=== PATIENT | female | born 1965 | race Asian ===

== ENCOUNTER 2021-08-01 02:07 | Inpatient (IN) | payer MEDICAID ==
[~2021-08-01] VITALS: Ht 154.9 cm; Wt 44.5 kg
--- NOTE | 2021-08-01 02:25 | NUR ---
TRACTOR TRAILER MECHANIC ADMITTING NOTES PATIENT ARRIVED ON UNIT VIA [place] WITH NURSE FROM [place]. RECEIVED PATIENT LAYING AWAKE IN BED. A/O X4. PATIENT WITH REGULAR AND UNLABORED BREATHING ON ROOM AIR, TOLERATED WELL. NO SIGNS AND SYMPTOMS OF DISTRESS NOTED AT THIS TIME. NO COMPLAINS OF PAIN OR DISCOMFORT AT THIS TIME. IV ACCESSES R HAND G #20 SL AND L HAND G #22 SL. IV ACCESSES PATENT AND INTACT. SAFETY PRECAUTIONS ENFORCED WITH BED LOCKED AND AT LOWEST POSITION. CALL LIGHT WITHIN REACH AT ALL TIMES. WILL CONTINUE TO MONITOR PATIENT.
[2021-08-01] MEDS ORDERED: ONDANSETRON HCL/PF 4 MG/2 ML VIAL IVP PRN (03:00)
[2021-08-01] MEDS ORDERED: MAG HYDROX/AL HYDROX/SIMETH 30 ML UDC PO PRN (03:00)
[2021-08-01] MEDS ORDERED: MAGNESIUM HYDROXIDE 30 ML UDC PO PRN (03:00)
[2021-08-01] MEDS ORDERED: TEMAZEPAM 15 MG CAPSULE PO PRN (03:00)
[2021-08-01] MEDS ORDERED: Z GUARD REMEDY 4 OZ OINT TP PRN (03:00)
[2021-08-01] MEDS ORDERED: APIX5TAB PO (03:44)
[2021-08-01] MEDS ORDERED: CEFTRIAXONE 1 G in IV D5W 50 ML IV SCH (03:53)
[2021-08-01] MEDS ORDERED: METO-295 PO (03:56)
[2021-08-01] MEDS ORDERED: OMEP20CA15 PO (03:56)
[2021-08-01] MEDS ORDERED: LEVO75TA7 PO (03:56)
[2021-08-01] MEDS ORDERED: ASPI-1169 PO (03:56)
[2021-08-01] MEDS ORDERED: ATOR40TA PO (03:56)
[2021-08-01] MEDS ORDERED: GABA-532 PO ×2 (03:56)
[2021-08-01] MEDS ORDERED: FERR160T11 PO (03:56)
[2021-08-01] MEDS ORDERED: EMPA25TA PO (03:56)
[2021-08-01] MEDS ORDERED: LISI10TA29 PO (03:56)
--- NOTE | 2021-08-01 04:00 | NUR ---
SPECIAL POLICE NOTES DID NOT ADMINISTER ZOSYN DOSE PATIENT RECEIVED ZOYSN AT 1830 AT [place]. WILL CONTINUE TO MONITOR PATIENT.
[2021-08-01] MEDS: ACETAMINOPHEN 325 MG TABLET PO PRN ×2 (05:41→20:31)
[2021-08-01] MEDS: IV NS 0.9% 1,000 ML IV PRN ×2 (06:47→20:31)
--- NOTE | 2021-08-01 06:59 | NUR ---
INTERNAL AUDIT CONSULTANT CLOSING NOTES PATIENT STILL LAYING AWAKE IN BED. A/O X4. PATIENT WITH REGULAR AND UNLABORED BREATHING ON ROOM AIR, TOLERATED WELL. NO SIGNS AND SYMPTOMS OF DISTRESS NOTED AT THIS TIME. NO COMPLAINS OF PAIN OR DISCOMFORT AT THIS TIME. IV ACCESSES R HAND G #20 INFUSING NS @ 75 ML/HR AND L HAND G #22 SL. IV ACCESSES PATENT AND INTACT. SAFETY PRECAUTIONS ENFORCED WITH BED LOCKED AND AT LOWEST POSITION. CALL LIGHT WITHIN REACH AT ALL TIMES. WILL ENDORSE CONTINUITY OF CARE TO DAY SHIFT NURSE.
--- NOTE | 2021-08-01 07:20 | NUR ---
ms rn [id number] on bed, awake,akert,oriented x4,not in any form of distress, respirations even and unlabored,no sob noted, lungs are diminish,abdomen soft,positive bowel sounds, denies pain at this time, will monitor patient.
[2021-08-01] MEDS: CEFTRIAXONE 1 G in IV D5W 50 ML IV SCH (08:09)
[2021-08-01] MEDS: PANTOPRAZOLE 40 MG TABLET.DR PO SCH (08:09)
--- NOTE | 2021-08-01 09:10 | NUR ---
ms blackburn breakfast served,due meds given,tolerated well.
--- NOTE | 2021-08-01 10:00 | NUR ---
ms alexey received a low k result from miki barnes w/ orders made and carried out.
--- NOTE | 2021-08-01 11:47 | NUR ---
ms rn was seen by miki vieira ,awaiting for orders.
[2021-08-01] MEDS ORDERED: GABAPENTIN 100 MG CAPSULE PO SCH (12:00)
[2021-08-01] MEDS: LISINOPRIL (10MG) 10 MG TABLET PO SCH (12:00)
[2021-08-01] MEDS ORDERED: METOCLOPRAMIDE HCL 10 MG TABLET PO PRN (12:00)
[2021-08-01] MEDS ORDERED: OMEPRAZOLE 20 MG CAPSULE.DR PO SCH (12:00)
[2021-08-01] MEDS: ASPIRIN 81 MG TAB.CHEW PO SCH (13:15)
[2021-08-01 13:18] LABS: CALCIUM, SERUM 7.6 mg/dL (8.5-10.1); CREATININE 0.5 mg/dL (0.6-1.3); PHOSPHORUS 2.4 mg/dL (2.5-4.9)
[2021-08-01] MEDS: LEVOTHYROXINE SODIUM 75 MCG TABLET PO SCH (13:22)
[2021-08-01] MEDS: GABAPENTIN 100 MG CAPSULE PO SCH ×2 (13:22→16:55)
[2021-08-01] MEDS: APIXABAN 5 MG TABLET PO SCH (13:22)
[2021-08-01 13:23] LABS: POTASSIUM 2.7 mmol/L (3.5-5.1)
[2021-08-01] MEDS: SLOW FE 1 TAB PO SCH (13:28)
[2021-08-01] MEDS: EMPAGLIFLOZIN 25 MG TABLET PO SCH (13:28)
[2021-08-01 13:49] LABS: BASOPHILS % (AUTO) 0.7 % (0.0-2.0); EOSINOPHILS % (AUTO) 6.2 % (0.0-6.0); HEMATOCRIT 27 % (33-45); HEMOGLOBIN 8.6 g/dL (11.5-14.8); LYMPHOCYTES # (AUTO) 0.9 K/uL (0.8-4.8); LYMPHOCYTES % (AUTO) 14.8 % (20.0-44.0); MEAN CORPUSCULAR HGB CONC 32 g/dl (31.0-36.0); MEAN CORPUSCULAR VOLUME 84 fL (82-100); MONOCYTES # (AUTO) 0.2 K/uL (0.1-1.30); MONOCYTES % (AUTO) 3.3 % (2.0-12.0); NEUTROPHILS # (AUTO) 4.8 K/uL (1.8-8.9); PLATELET COUNT (AUTO) 588 K/uL (150-450); RED BLOOD CELL COUNT(AUTO) 3.25 MIL/uL (4.0-5.2); WHITE BLOOD COUNT (AUTO) 6.4 K/uL (4.3-11.0)
[2021-08-01] MEDS ORDERED: POTASSIUM CHLORIDE 10 MEQ TABLET.SA PO ONE (14:00)
--- NOTE | 2021-08-01 15:16 | NUR ---
ms rn on bed, all needs attended.
[2021-08-01] MEDS ORDERED: K PHOS NEUTRAL 250 MG TABLET PO ONE (15:30)
[2021-08-01] MEDS: ATORVASTATIN 40 MG TABLET PO SCH (18:17)
--- NOTE | 2021-08-01 18:59 | NUR ---
ms rn on bed, no distress noted,all needs attended.
--- NOTE | 2021-08-01 19:52 | NUR ---
MS/TELE/RN PATIENT IS AWAKE, ALERT AND ORIENTED, NO SIGNS OF DISTRESS NOTED, C/O BACK AND AND LEGS PAIN, REFUSED NORCO, PREFERS TYLENOL, OBTAINED ORDER FOR TYLENOL FROM KARL GOMEZ DNP. WILL ADMINISTER ONCE ACKNOWLEDGED BY THE PHARMACY.
[2021-08-01 20:00] VITALS: BP 108/70
[2021-08-01] MEDS ORDERED: ACETAMINOPHEN 325 MG TABLET PO PRN (20:00)
[2021-08-02] VITALS: BP 92/59
--- NOTE | 2021-08-02 01:04 | NUR ---
MS/TELE/RN PATIENT IS SLEEPING AT THIS TIME, APPEARS COMFORTABLE, BREATHING EVEN AND UNLABORED, NO SIGNS OF DISTRESS NOTED, CALL LIGHT IN REACH, WILL CONTINUE TO MONITOR.
[2021-08-02 04:00] VITALS: BP 94/57
[2021-08-02 06:20] LABS: CREATININE 0.4 mg/dL (0.6-1.3); PHOSPHORUS 2.4 mg/dL (2.5-4.9); POTASSIUM 3.3 mmol/L (3.5-5.1)
[2021-08-02 06:31] LABS: THYROID STIMULATING HORMONE 2.272 uIU/mL (0.358-3.74)
[2021-08-02 06:44] LABS: BASOPHILS # (AUTO) 0.1 K/uL (0.0-0.2); EOSINOPHILS % (AUTO) 6.3 % (0.0-6.0); HEMATOCRIT 26 % (33-45); LYMPHOCYTES % (AUTO) 16.3 % (20.0-44.0); MEAN CORPUSCULAR HGB CONC 31 g/dl (31.0-36.0); MEAN CORPUSCULAR VOLUME 85 fL (82-100); MONOCYTES # (AUTO) 0.3 K/uL (0.1-1.30); MONOCYTES % (AUTO) 4.5 % (2.0-12.0); NEUTROPHILS # (AUTO) 4.4 K/uL (1.8-8.9); NEUTROPHILS % (AUTO) 71.9 % (43.0-81.0); PLATELET COUNT (AUTO) 525 K/uL (150-450); RED BLOOD CELL COUNT(AUTO) 3.05 MIL/uL (4.0-5.2); WHITE BLOOD COUNT (AUTO) 6.1 K/uL (4.3-11.0)
--- NOTE | 2021-08-02 06:45 | NUR ---
MS/TELE/RN PATIENT APPEARS SLEEPING, APPEARS COMFORTABLE, BREATHING EVEN AND UNLABORED, NO SIGNS OF DISTRESS NOTED, CALL LIGHT IN REACH, ALL NEEDS ATTENDED AT THIS TIME, WILL CONTINUE TO MONITOR.
--- NOTE | 2021-08-02 07:25 | NUR ---
ms rn received on bed, awake,alert,oriented x4,not in any form of distress, respirations even and unlabored,no sob noted, montanez to gravity w/ yellowish urine output.will monitor patient.
[2021-08-02] MEDS ORDERED: POTASSIUM CHLORIDE 20 MEQ TAB.PRT.SR PO ONE (08:00)
[2021-08-02 08:28] VITALS: BP 110/70
--- NOTE | 2021-08-02 08:30 | NUR ---
ms blackburn breakfast served,due meds given,tolerated well.
[2021-08-02] MEDS: GABAPENTIN 100 MG CAPSULE PO SCH ×3 (08:34→17:45)
[2021-08-02] MEDS: PANTOPRAZOLE 40 MG TABLET.DR PO SCH (08:35)
[2021-08-02] MEDS: ASPIRIN 81 MG TAB.CHEW PO SCH ×2 (08:35→12:24)
[2021-08-02] MEDS: LISINOPRIL (10MG) 10 MG TABLET PO SCH (08:35)
[2021-08-02] MEDS: LEVOTHYROXINE SODIUM 75 MCG TABLET PO SCH (08:36)
[2021-08-02] MEDS: APIXABAN 5 MG TABLET PO SCH (08:36)
[2021-08-02] MEDS: EMPAGLIFLOZIN 25 MG TABLET PO SCH (08:40)
[2021-08-02] MEDS: SLOW FE 1 TAB PO SCH (08:40)
[2021-08-02] MEDS: CEFTRIAXONE 1 G in IV D5W 50 ML IV SCH (08:46)
[2021-08-02] MEDS ORDERED: K PHOS NEUTRAL 250 MG TABLET PO ONE (09:00)
--- NOTE | 2021-08-02 11:00 | NUR ---
ms alexey was seen by miki vieira w/ orders made and carried out.
[2021-08-02] MEDS: ACETAMINOPHEN 325 MG TABLET PO PRN ×2 (12:25→22:13)
[2021-08-02 12:27] VITALS: BP 116/66
--- NOTE | 2021-08-02 15:22 | NUR ---
ms rn on bed, no distress, all needs attended
[2021-08-02 16:42] VITALS: BP 95/59
[2021-08-02] MEDS: ATORVASTATIN 40 MG TABLET PO SCH (17:45)
[2021-08-02] MEDS: GLUCERNA SHAKE 237 ML CAN PO SCH (17:45)
--- NOTE | 2021-08-02 18:34 | NUR ---
ms rn on bed, no distress noted ,daughter at bedside, was able to spoke w/ case work aide,all needs attended.
[2021-08-02 20:30] VITALS: BP 118/78
--- NOTE | 2021-08-02 21:04 | NUR ---
MS/TELE/RN ON INITIAL ASSESSMENT AT 1930, PATIENT WAS LYING IN BED AWAKE, ALERT, ORIENTED, APPEARS COMFORTABLE, NO SIGNS OF DISTRESS NOTED, CALL LIGHT IN REACH, FALL PRECAUTIONS PER PROTOCOL IMPLEMENTED, WILL MONITOR.
[2021-08-02] MEDS: IV NS 0.9% 1,000 ML IV PRN (22:19)
[2021-08-03] VITALS (7 sets, daily range): BP systolic 91–121; BP diastolic 60–74
[2021-08-03 03:45] LABS: BASOPHILS % (AUTO) 0.3 % (0.0-2.0); EOSINOPHILS % (AUTO) 5.5 % (0.0-6.0); HEMATOCRIT 27 % (33-45); HEMOGLOBIN 8.5 g/dL (11.5-14.8); LYMPHOCYTES # (AUTO) 0.8 K/uL (0.8-4.8); LYMPHOCYTES % (AUTO) 12.2 % (20.0-44.0); MEAN CORPUSCULAR HGB CONC 31 g/dl (31.0-36.0); MEAN CORPUSCULAR VOLUME 86 fL (82-100); MONOCYTES # (AUTO) 0.2 K/uL (0.1-1.30); MONOCYTES % (AUTO) 3.6 % (2.0-12.0); NEUTROPHILS # (AUTO) 5.2 K/uL (1.8-8.9); NEUTROPHILS % (AUTO) 78.4 % (43.0-81.0); PLATELET COUNT (AUTO) 520 K/uL (150-450); RED BLOOD CELL COUNT(AUTO) 3.17 MIL/uL (4.0-5.2); WHITE BLOOD COUNT (AUTO) 6.7 K/uL (4.3-11.0)
[2021-08-03 04:31] LABS: CALCIUM, SERUM 7.8 mg/dL (8.5-10.1); CREATININE 0.5 mg/dL (0.6-1.3); MAGNESIUM 1.8 mg/dL (1.8-2.4); PHOSPHORUS 2.5 mg/dL (2.5-4.9); POTASSIUM 3.4 mmol/L (3.5-5.1)
[2021-08-03] MEDS ORDERED: LORAZEPAM INJ 2 MG/ML VIAL IV PRN (05:30)
[2021-08-03] MEDS ORDERED: POTASSIUM CHLORIDE 20 MEQ TAB.PRT.SR PO ONE (05:30)
--- NOTE | 2021-08-03 05:39 | NUR ---
MS/TELE/RN 04:19, PATIENT C/O "CAN NOT BREATH", AND " PAIN IN CHEST". VITAL SIGNS T 98.1, HR 124, RR 26, O2 SAT 99% ON 3L O2, BP 110/65. EKG ORDERED. RESULT SENT TO DR. BARAJAS AND NOTIFIED HIM OF THE PATIENT'S COMPLAINT. RECEIVED ORDER OF POTASSIUM 40 MEQ PO X 1 AND TO GIVE MORPHINE FOR C/O CHEST PAIN. PATIENT REFUSED MORPHINE, PER PATIENT CHEST IS OK NOW, POTASSIUM 20 MEQ PO WAS GIVEN. WILL CONTINUE TO MONITOR.
--- NOTE | 2021-08-03 06:51 | NUR ---
MS/TELE/RN PATIENT IS SLEEPING, APPEARS COMFORTABLE, BREATHING EVEN AND UNLABORED, NO SIGNS OF DISTRESS NOTED, CALL LIGHT IN REACH, ALL NEEDS ATTENDED AT THIS TIME, WILL CONTINUE TO MONITOR.
--- NOTE | 2021-08-03 07:25 | NUR ---
ms rn received on bed, awake,alert,oriented x4,patient appears weak, complaining of sob but 98% on saturation,denies pain at this time,still high rate on monitor, md aware since yesterday, will monitor patient.
[2021-08-03] MEDS: GLUCERNA SHAKE 237 ML CAN PO SCH ×2 (08:00→17:00)
--- NOTE | 2021-08-03 08:00 | NUR ---
ms rn was seen by dr. lyndon villalobos/ orders made and carried out.
--- NOTE | 2021-08-03 09:00 | NUR ---
ms rn echo resulted w/ only 20-25% ef, diamond powder technician chester texted dr. haney for result,awaiting for orders.
--- NOTE | 2021-08-03 10:00 | NUR ---
ms rn was seen by miki vieira, will monitor patient.
[2021-08-03] MEDS: POTASSIUM CHLORIDE 20 MEQ TAB.PRT.SR PO SCH ×2 (10:02→10:14)
[2021-08-03] MEDS: SLOW FE 1 TAB PO SCH (10:02)
[2021-08-03] MEDS: ASPIRIN 81 MG TAB.CHEW PO SCH (10:02)
[2021-08-03] MEDS: GABAPENTIN 100 MG CAPSULE PO SCH ×3 (10:02→18:12)
[2021-08-03] MEDS: LEVOTHYROXINE SODIUM 75 MCG TABLET PO SCH (10:02)
[2021-08-03] MEDS: EMPAGLIFLOZIN 25 MG TABLET PO SCH (10:03)
[2021-08-03] MEDS: CEFTRIAXONE 1 G in IV D5W 50 ML IV SCH (10:08)
[2021-08-03] MEDS: APIXABAN 5 MG TABLET PO SCH (10:12)
[2021-08-03] MEDS: PANTOPRAZOLE 40 MG TABLET.DR PO SCH (10:13)
[2021-08-03 11:36] LABS: OCCULT BLOOD STOOL NEGATIVE (NEGATIVE)
[2021-08-03] MEDS: DIGOXIN INJ 0.5 MG/2 ML AMPUL IV SCH ×2 (13:25→18:11)
[2021-08-03] MEDS: ACETAMINOPHEN 325 MG TABLET PO PRN ×2 (13:39→23:29)
[2021-08-03] MEDS ORDERED: FUROSEMIDE 20 MG/2 ML VIAL IV ONE (14:00)
[2021-08-03] MEDS: ATORVASTATIN 40 MG TABLET PO SCH (18:11)
--- NOTE | 2021-08-03 19:00 | NUR ---
ms rn on bed, no distress noted,all needs attended.
--- NOTE | 2021-08-03 20:08 | NUR ---
MS/TELE/RN PATIENT IS IN BED AWAKE, ALERT, ORIENTED, LYING COMFORTABLE IN BED, NO C/O PAIN, NO SIGNS OF DISTRESS NOTED, CALL LIGHT IN REACH, FALL PRECAUTIONS PER PROTOCOL IMPLEMENTED, ALL NEEDS ATTENDED, WILL MONITOR.
--- NOTE | 2021-08-03 23:33 | NUR ---
RN notes Pt is requesting tylenol for headache and back pain. administered tylenol 650 mg/po/prn as ordered per Pt' request. Primary nurse is aware and informed. will continue to monitor.
[2021-08-04] MEDS: DIGOXIN INJ 0.5 MG/2 ML AMPUL IV SCH (00:30)
--- NOTE | 2021-08-04 00:40 | NUR ---
MS/TELE/RN DIGOXIN 0.25 MG SLOW IVP ADMINISTERED PER PROTOCOL.
[2021-08-04 04:00] VITALS: BP 104/64
[2021-08-04 06:12] LABS: BASOPHILS % (AUTO) 0.5 % (0.0-2.0); EOSINOPHILS % (AUTO) 5.4 % (0.0-6.0); HEMATOCRIT 28 % (33-45); HEMOGLOBIN 8.7 g/dL (11.5-14.8); LYMPHOCYTES % (AUTO) 15.5 % (20.0-44.0); MEAN CORPUSCULAR HGB CONC 31 g/dl (31.0-36.0); MEAN CORPUSCULAR VOLUME 85 fL (82-100); MONOCYTES # (AUTO) 0.3 K/uL (0.1-1.30); MONOCYTES % (AUTO) 4.9 % (2.0-12.0); NEUTROPHILS # (AUTO) 4.7 K/uL (1.8-8.9); NEUTROPHILS % (AUTO) 73.7 % (43.0-81.0); PLATELET COUNT (AUTO) 500 K/uL (150-450); RED BLOOD CELL COUNT(AUTO) 3.28 MIL/uL (4.0-5.2); WHITE BLOOD COUNT (AUTO) 6.4 K/uL (4.3-11.0)
--- NOTE | 2021-08-04 06:18 | NUR ---
MS/TELE/RN PATIENT IS STILL SLEEPING AT THIS TIME, APPEARS COMFORTABLE, BREATHING EVEN AND UNLABORED, NO SIGNS OF DISTRESS NOTE, CALL LIGHT IN REACH, ALL NEEDS ATTENDED AT THIS TIME, WILL CONTINUE TO MONITOR.
[2021-08-04 07:00] LABS: CALCIUM, SERUM 8.1 mg/dL (8.5-10.1); CREATININE 0.5 mg/dL (0.6-1.3); MAGNESIUM 1.5 mg/dL (1.8-2.4); PHOSPHORUS 2.5 mg/dL (2.5-4.9); POTASSIUM 3.9 mmol/L (3.5-5.1)
[2021-08-04] MEDS: PANTOPRAZOLE 40 MG TABLET.DR PO SCH (07:16)
[2021-08-04] MEDS: GLUCERNA SHAKE 237 ML CAN PO SCH ×2 (07:18→17:19)
--- NOTE | 2021-08-04 07:19 | NUR ---
DIETARY MANAGER OPENING NOTE RECEIVED PT IN BED ASLEEP, EASILY AWAKEN UPON CALL. A/OX4. ABLE TO MAKE NEEDS KNOWN. ON RA, TOLERATING WELL. BREATHING EVEN AND UNLABORED. NOT IN ANY SIGN OF RESPIRATORY DISTRESS. ON TELE MONITOR WITH CURRENT READING OF JUNCTIONAL TACHY, HR 120. NO COMPLAIN OF ANY CARDIAC DISCOMFORT OR DISTRESS AT THIS TIME. LINDQUIST CATH IN PLACE, DRAINING WELL WITH CLEAR AND YELLOW URINE. IV ACCESS IN R AND L HAND G #20 INTACT AND PATENT. SAFETY MEASURES IN PLACE: BED IN LOWEST AND LOCKED POSITION, BED ALARM ON, SIDE RAILS UPX2, CALL LIGHT WITHIN REACH. WILL CONTINUE TO MONITOR PT AND WITH PLAN OF CARE.
[2021-08-04] MEDS: FUROSEMIDE 40 MG/4 ML VIAL IV SCH ×2 (07:46→11:49)
[2021-08-04] MEDS: POTASSIUM CHLORIDE 20 MEQ TAB.PRT.SR PO SCH ×3 (07:46→10:34)
[2021-08-04] MEDS: Magnesium 1GM/D5W 100ML PREMIX 100 ML IV SCH ×2 (08:34→09:56)
[2021-08-04 08:38] VITALS: BP 110/73
[2021-08-04] MEDS: CEFTRIAXONE 1 G in IV D5W 50 ML IV SCH (09:41)
[2021-08-04] MEDS: ACETAMINOPHEN 325 MG TABLET PO PRN ×2 (09:48→20:24)
--- NOTE | 2021-08-04 09:49 | NUR ---
RN notes Pt is complaining of headache and requesting tylenol. administered tylenol 650 mg/po/prn as ordered for headache. Primary nurse is aware and informed. Will continue to monitor.
[2021-08-04] MEDS: EMPAGLIFLOZIN 25 MG TABLET PO SCH (10:12)
[2021-08-04] MEDS: ASPIRIN 81 MG TAB.CHEW PO SCH (10:12)
[2021-08-04] MEDS: SLOW FE 1 TAB PO SCH (10:12)
[2021-08-04] MEDS: GABAPENTIN 100 MG CAPSULE PO SCH ×3 (10:13→17:19)
[2021-08-04] MEDS: LEVOTHYROXINE SODIUM 75 MCG TABLET PO SCH (10:13)
[2021-08-04] MEDS: APIXABAN 5 MG TABLET PO SCH (10:14)
[2021-08-04] MEDS ORDERED: POTASSIUM CHLORIDE 20 MEQ TAB.PRT.SR PO SCH (11:00)
[2021-08-04 13:09] VITALS: BP 116/76
[2021-08-04 16:37] VITALS: BP 96/68
[2021-08-04] MEDS: ATORVASTATIN 40 MG TABLET PO SCH (17:19)
--- NOTE | 2021-08-04 18:45 | NUR ---
CARGO BRACER CLOSING NOTE PT IN BED AWAKE. A/OX4. ABLE TO MAKE NEEDS KNOWN. ON O2 AT 3L VIA NASAL CANNULA, TOLERATING WELL. BREATHING EVEN AND UNLABORED. NOT IN ANY SIGN OF RESPIRATORY DISTRESS. ON TELE MONITOR WITH CURRENT READING OF JUNCTIONAL TACHY, HR 130'S. NO COMPLAIN OF ANY CARDIAC DISCOMFORT OR DISTRESS AT THIS TIME. LINDQUIST CATH IN PLACE, DRAINING WELL WITH CLEAR AND YELLOW URINE. IV ACCESS IN R AND L HAND G #20 SALINE LOCK, INTACT AND PATENT. TURNED AND REPOSITIONED PT Q2HRS AND NEEDED. ALL NEEDS ATTENDED. SAFETY MEASURES IN PLACE: BED IN LOWEST AND LOCKED POSITION, BED ALARM ON, SIDE RAILS UPX2, CALL LIGHT WITHIN REACH. WILL ENDORSED TO BACK TENDER PAPER MACHINE NURSE FOR CONTINUITY OF CARE.
--- NOTE | 2021-08-04 19:43 | NUR ---
RN WOMENS HEALTH OPENING NOTE RECEIVED PT RESTING IN BED, EYES CLOSED, EASILY AROUSABLE. A/OX4 AND ABLE TO MAKE NEEDS KNOWN. ON O2 AT 3LPM VIA NC, TOLERATING WELL. NO SOB OR S/S OF RESPIRATORY DISTRESS NOTED. BREATHING EVEN AND UNLABORED. ON EXTERNAL MANAGER LEASING READING JUNCTIONAL TACHY [address]PM[address] LINDQUIST CATH IN PLACE, DRAINING CLEAR YELLOW URINE. IV ACCESS R AND L HAND 20 GAUGE SL, INTACT AND PATENT. SAFETY PRECAUTIONS IN PLACE. BED IN LOWEST LOCKED POSITION, HOB ELEVATED, SIDE RAILS UP X3, AND CALL LIGHT AND TABLE WITHIN REACH. ALL NEEDS MET AT THIS TIME.
[2021-08-04 20:00] VITALS: BP 121/77
--- NOTE | 2021-08-04 20:24 | NUR ---
RN NOTE PT COMPLAINED OF HEADACHE PAIN 06/06. ADMINISTERED TYLENOL 650 MG FOR MILD PAIN ORDERED. MADE COMFORTABLE IN BED. ALL NEEDS MET AT THIS TIME.
[2021-08-04 20:48] VITALS: BP 121/77
[2021-08-05] VITALS: BP 101/70
[2021-08-05 05:00] VITALS: BP 110/76
[2021-08-05 06:31] LABS: BASOPHILS # (AUTO) 0.1 K/uL (0.0-0.2); BASOPHILS % (AUTO) 0.9 % (0.0-2.0); EOSINOPHILS % (AUTO) 4.6 % (0.0-6.0); HEMATOCRIT 30 % (33-45); HEMOGLOBIN 9.5 g/dL (11.5-14.8); LYMPHOCYTES # (AUTO) 1.2 K/uL (0.8-4.8); LYMPHOCYTES % (AUTO) 15.2 % (20.0-44.0); MEAN CORPUSCULAR HGB CONC 31 g/dl (31.0-36.0); MEAN CORPUSCULAR VOLUME 84 fL (82-100); MONOCYTES # (AUTO) 0.4 K/uL (0.1-1.30); MONOCYTES % (AUTO) 4.8 % (2.0-12.0); NEUTROPHILS # (AUTO) 5.8 K/uL (1.8-8.9); NEUTROPHILS % (AUTO) 74.5 % (43.0-81.0); PLATELET COUNT (AUTO) 557 K/uL (150-450); RED BLOOD CELL COUNT(AUTO) 3.64 MIL/uL (4.0-5.2); WHITE BLOOD COUNT (AUTO) 7.8 K/uL (4.3-11.0)
--- NOTE | 2021-08-05 06:43 | NUR ---
CITY COUNCIL MEMBER CLOSING NOTE PT RESTING IN BED, EYES CLOSED, EASILY AROUSABLE. A/OX4 AND ABLE TO MAKE NEEDS KNOWN. ON O2 AT 3LPM VIA NC, TOLERATING WELL. NO SOB OR S/S OF RESPIRATORY DISTRESS NOTED. BREATHING EVEN AND UNLABORED. ON EXTERNAL WORKING FOREMAN READING JUNCTIONAL TACHY [address]PM[address] LINDQUIST CATH IN PLACE, DRAINING CLEAR YELLOW URINE. IV ACCESS R AND L HAND 20 GAUGE SL, INTACT AND PATENT. ALL DUE MEDS GIVEN ORDERED. TURNED AND REPOSITIONED Q2H. SAFETY PRECAUTIONS IN PLACE AT ALL TIMES. BED IN LOWEST LOCKED POSITION, HOB ELEVATED, SIDE RAILS UP X3, AND CALL LIGHT AND TABLE WITHIN REACH. ALL NEEDS MET AT THIS TIME AND WILL ENDORSE TO ONCOMING NURSE FOR JAMARI.
[2021-08-05 06:57] LABS: ALBUMIN 1.7 g/dL (3.4-5.0); BILIRUBIN,TOTAL 0.3 mg/dL (0.2-1.0); CALCIUM, SERUM 8.7 mg/dL (8.5-10.1); CREATININE 0.6 mg/dL (0.6-1.3); MAGNESIUM 1.9 mg/dL (1.8-2.4); PHOSPHORUS 3.9 mg/dL (2.5-4.9); POTASSIUM 3.9 mmol/L (3.5-5.1); TOTAL PROTEIN, SERUM 6.6 g/dL (6.4-8.2)
--- NOTE | 2021-08-05 07:17 | NUR ---
WASHHOUSE HAND OPENING NOTE RECEIVED PT IN ASLEEP IN BED, EASILY AROUSE. A/OX4. ABLE TO MAKE NEEDS KNOWN. ON O2 AT 3L VIA NASAL CANNULA, TOLERATING WELL. BREATHING EVEN AND UNLABORED. NOT IN ANY SIGN OF RESPIRATORY DISTRESS. ON TELE MONITOR WITH CURRENT READING OF JUNCTIONAL TACHY, HR 130. NO COMPLAIN OF ANY CARDIAC DISCOMFORT OR DISTRESS AT THIS TIME. LINDQUIST CATH IN PLACE, DRAINING WELL WITH CLEAR AND YELLOW URINE. IV ACCESS IN R AND L HAND G #20 SALINE LOCK, INTACT AND PATENT. SAFETY MEASURES IN PLACE: BED IN LOWEST AND LOCKED POSITION, BED ALARM ON, SIDE RAILS UPX2, CALL LIGHT WITHIN REACH. WILL CONTINUE TO MONITOR PT AND WITH PLAN OF CARE.
[2021-08-05] MEDS: PANTOPRAZOLE 40 MG TABLET.DR PO SCH (07:43)
[2021-08-05] MEDS: GLUCERNA SHAKE 237 ML CAN PO SCH ×2 (07:43→17:17)
[2021-08-05 08:00] VITALS: BP 117/73
[2021-08-05] MEDS: CEFTRIAXONE 1 G in IV D5W 50 ML IV SCH (08:48)
[2021-08-05] MEDS: GABAPENTIN 100 MG CAPSULE PO SCH ×3 (08:48→17:17)
[2021-08-05] MEDS: ASPIRIN 81 MG TAB.CHEW PO SCH (08:48)
[2021-08-05] MEDS: LEVOTHYROXINE SODIUM 75 MCG TABLET PO SCH (08:48)
[2021-08-05] MEDS: APIXABAN 5 MG TABLET PO SCH (08:49)
[2021-08-05] MEDS: EMPAGLIFLOZIN 25 MG TABLET PO SCH (08:50)
[2021-08-05] MEDS: SLOW FE 1 TAB PO SCH (08:51)
[2021-08-05] MEDS: ACETAMINOPHEN 325 MG TABLET PO PRN ×2 (08:53→22:34)
[2021-08-05 16:00] VITALS: BP 121/75
[2021-08-05] MEDS: ATORVASTATIN 40 MG TABLET PO SCH (17:17)
[2021-08-05] MEDS ORDERED: AMIODARONE 450 MG in IV D5W 241 ML IV PRN (18:30)
[2021-08-05] MEDS ORDERED: AMIODARONE 150 MG in IV D5W 100 ML IV ONE (18:30)
--- NOTE | 2021-08-05 19:00 | NUR ---
RN NOTES RECEIVED AN AMIODARONE DRIP ORDER FROM DR. RIVERA, MADE DR. CROCKETT AWARE WITH ORDERS TO TRANSFER PT TO [facility]. NURSING BELT DRESSER DELROY DAVIS. ENDORSED TO TECHNICAL ADJUSTER NURSE DILCIA OF TRANSFER ORDER TO [facility].
--- NOTE | 2021-08-05 19:29 | NUR ---
ACUTE CARE REGISTERED NURSE CLOSING NOTE PT ASLEEP IN BED, EASILY AROUSE. A/OX4. ABLE TO MAKE NEEDS KNOWN. ON O2 AT 3L VIA NASAL CANNULA, TOLERATING WELL. BREATHING EVEN AND UNLABORED. NOT IN ANY SIGN OF RESPIRATORY DISTRESS. ON TELE MONITOR WITH CURRENT READING OF JUNCTIONAL TACHY, HR 120'S. NO COMPLAIN OF ANY CARDIAC DISCOMFORT OR DISTRESS AT THIS TIME. LINDQUIST CATH IN PLACE, DRAINING WELL WITH CLEAR AND YELLOW URINE. IV ACCESS IN R AND L HAND G #20 SALINE LOCK, INTACT AND PATENT. TURNED AND REPOSITIONED PT Q2HRS AND NEEDED. ALL NEEDS ATTENDED. SAFETY MEASURES IN PLACE: BED IN LOWEST AND LOCKED POSITION, BED ALARM ON, SIDE RAILS UPX2, CALL LIGHT WITHIN REACH. ENDORSED TO BIZTALK ADMINISTRATOR NURSE FOR CONTINUITY OF CARE.
--- NOTE | 2021-08-05 20:04 | NUR ---
FLUID POWER MECHANIC OPENING NOTE RECEIVED PT RESTING IN BED, EYES CLOSED, EASILY AROUSABLE. A/OX4 AND ABLE TO MAKE NEEDS KNOWN. ON O2 AT 3LPM VIA NC, TOLERATING WELL. NO SOB OR S/S OF RESPIRATORY DISTRESS NOTED. BREATHING EVEN AND UNLABORED. ON EXTERNAL AIR TRAFFIC CONTROL SPECIALIST CENTER READING JUNCTIONAL TACHY [address] LINDQUIST CATH IN PLACE, DRAINING CLEAR YELLOW URINE. IV ACCESS R AND L HAND 20 GAUGE SL, INTACT AND PATENT. SAFETY PRECAUTIONS IN PLACE. BED IN LOWEST LOCKED POSITION, HOB ELEVATED, SIDE RAILS UP X3, AND CALL LIGHT AND TABLE WITHIN REACH. ALL NEEDS MET AT THIS TIME.
--- NOTE | 2021-08-05 20:56 | NUR ---
RN NOTE PT TRANSPORTED TO [facility] VIA GURNEY WITH ACLS PROTOCOL AT THIS TIME. REPORT GIVEN AT BEDSIDE.
[2021-08-05 21:30] VITALS: BP 111/66
--- NOTE | 2021-08-05 21:30 | NUR ---
BRAND LEAD NOTES: RECEIVED PT FROM 3 FLOOR MED-SURG UNITS. RECEIVED REPORT FROM ARNOLD HA AT BEDSIDE. PT AWAKE, A/OX4, AND VERBALLY RESPONSIVE. ON 3L/MIN VIA N/C, AND PT TOLERATED WELL. O2 SAT 100%. IV ACCESS ON RT AND LT HAND #20G INTACT AND PATENT. NO S/S OF INFILTRATIONS. NO C/O PAIN OR DISCOMFORT. NO ACUTE DISTRESS. LINDQUIST CATHETER INTACT AND PATENT WITH YELLOWISH/CLEAR URINE. WILL START AMIODARONE DRIP PER DR. RIVERA'S ORDER. ALL SAFETY MEASURES IN PLACE. BED IN THE LOWEST POSITION AND LOCKED. SIDE RAILS UP X3, PLACE CALL LIGHT WITH IN REACH. WILL CONTINUE TO MONITOR
--- NOTE | 2021-08-05 22:10 | NUR ---
SPOKE WITH DR RIVERA REGARDING PATIENT NOTED WITH SINUS TACHYCARDIA IN TELE MONITOR WITH HR 120S, PATIENT TRANSFERRED FROM 3W FLOOR TO START AMIODARONE DRIP, PER REPORT AFIB, PER DR RIVERA SVT ACCORDING TO EARLY PROGRESS NOTES, PER STAT EKG SHOWS SINUS TACHYCARDIA AND PER DR RIVERA HOLD OFF ON AMIODARONE DRIP, AND START METOPROLOL 25MG BID, ORDER NOTED AND CARRIED OUT.
[2021-08-05] MEDS: METOPROLOL TARTRATE 25 MG TABLET PO SCH (22:34)
--- NOTE | 2021-08-05 22:44 | NUR ---
RN NOTES: METOPROLOL 25 MG TAB GIVEN PER 'S ORDER. BP-111/66, PULSE-124. PT C/O MILD HEADACHE, TYLENOL 325 MG 2 TAB GIVEN PER PRN ORDER. PT TOLERATED WELL. WILL CONTINUE TO MONITOR
[2021-08-06] VITALS: BP 100/58
[2021-08-06 04:00] VITALS: BP 118/74
--- NOTE | 2021-08-06 06:34 | NUR ---
RN CLOSING NOTES: PT IN BED AWAKE, A/OX4, AND VERBALLY RESPONSIVE. ON 3L/MIN VIA N/C, AND PT TOLERATED WELL. O2 SAT 100%. IV ACCESS ON RT AND LT HAND #20G INTACT AND PATENT. NO S/S OF INFILTRATIONS. NO C/O PAIN OR DISCOMFORT. NO ACUTE DISTRESS. LINDQUIST CATHETER INTACT AND PATENT WITH YELLOWISH/CLEAR URINE. DUE MEDS GIVEN ORDERED. ALL SAFETY MEASURES IN PLACE. BED IN THE LOWEST POSITION AND LOCKED. SIDE RAILS UP X3, PLACE CALL LIGHT WITH IN REACH. WILL ENDORSE TO MORNING SHIFT NURSE.
[2021-08-06 06:58] LABS: BASOPHILS # (AUTO) 0.1 K/uL (0.0-0.2); BASOPHILS % (AUTO) 1.1 % (0.0-2.0); EOSINOPHILS % (AUTO) 7.4 % (0.0-6.0); HEMATOCRIT 28 % (33-45); HEMOGLOBIN 8.8 g/dL (11.5-14.8); LYMPHOCYTES # (AUTO) 1.2 K/uL (0.8-4.8); LYMPHOCYTES % (AUTO) 17.7 % (20.0-44.0); MEAN CORPUSCULAR HGB CONC 32 g/dl (31.0-36.0); MEAN CORPUSCULAR VOLUME 84 fL (82-100); MONOCYTES # (AUTO) 0.4 K/uL (0.1-1.30); MONOCYTES % (AUTO) 5.4 % (2.0-12.0); NEUTROPHILS # (AUTO) 4.6 K/uL (1.8-8.9); NEUTROPHILS % (AUTO) 68.4 % (43.0-81.0); PLATELET COUNT (AUTO) 508 K/uL (150-450); RED BLOOD CELL COUNT(AUTO) 3.32 MIL/uL (4.0-5.2); WHITE BLOOD COUNT (AUTO) 6.7 K/uL (4.3-11.0)
[2021-08-06 07:23] LABS: CREATININE 0.5 mg/dL (0.6-1.3); MAGNESIUM 1.9 mg/dL (1.8-2.4); PHOSPHORUS 3.7 mg/dL (2.5-4.9); POTASSIUM 3.7 mmol/L (3.5-5.1)
[2021-08-06] MEDS: PANTOPRAZOLE 40 MG TABLET.DR PO SCH (07:30)
--- NOTE | 2021-08-06 07:40 | NUR ---
RN OPENING NOTES, RECEIVED PATIENT FROM JENNI BARRETT FOR CONTINUATION OF CARE, PATIENT A/O X4 ABLE TO VERBALIZE NEEDS AND CONCERNS, AT 2LPM VIA NC WITH OPTIMAL O2 SAT LEVEL, SR-ST IN TELE MONITOR WITH HIGHS IN 110S AT THIS TIME, DRY AND CLEAN, BED LOCKED AND IN LOWEST POSITION, BILATERAL S/R OF BED UP, CALL LIGHT W/I REACH, WILL CONTINUE TO MONITOR CLOSELY.
[2021-08-06 08:00] VITALS: BP 132/81
[2021-08-06] MEDS: ASPIRIN 81 MG TAB.CHEW PO SCH (08:37)
[2021-08-06] MEDS: LEVOTHYROXINE SODIUM 75 MCG TABLET PO SCH (08:38)
[2021-08-06] MEDS: METOPROLOL TARTRATE 25 MG TABLET PO SCH ×2 (08:38→21:39)
[2021-08-06] MEDS: GABAPENTIN 100 MG CAPSULE PO SCH ×3 (08:38→17:43)
[2021-08-06] MEDS: APIXABAN 5 MG TABLET PO SCH (08:39)
[2021-08-06] MEDS: GLUCERNA SHAKE 237 ML CAN PO SCH ×2 (08:58→17:43)
[2021-08-06] MEDS: SLOW FE 1 TAB PO SCH (09:02)
[2021-08-06] MEDS: EMPAGLIFLOZIN 25 MG TABLET PO SCH (09:02)
[2021-08-06] MEDS: CEFTRIAXONE 1 G in IV D5W 50 ML IV SCH (09:02)
[2021-08-06 12:00] VITALS: BP 126/75
[2021-08-06] MEDS: HYDROCODONE/APAP 5/325MG TABLET PO PRN ×2 (13:50→13:54)
--- NOTE | 2021-08-06 14:12 | NUR ---
WASTED NORCO ONE TABLET WITH CHARGE NURSE [place] PRESENT, PATIENT REFUSED NORCO AFTER I OPENED MEDICATION AND DECIDED TO TAKE TYLENOL INSTEAD, [facility] PHARMACIST AWARE.
--- NOTE | 2021-08-06 14:12 | NUR ---
WASTED NORCO ONE TABLET WITH PRIMARY RN ORIANAPT. DECIDED TO TAKE PLAIN TYLENOL ONLY,PHARMACY NOTIFIED WILLY.UNABLE TO WASTE ON OMNICEL.
[2021-08-06 16:00] VITALS: BP 96/59
[2021-08-06] MEDS: ATORVASTATIN 40 MG TABLET PO SCH (17:43)
--- NOTE | 2021-08-06 18:47 | NUR ---
PATIENT A/O X4 ABLE TO VERBALIZED NEEDS AND CONCERNS, ST IN THE TELE MONITOR WITH HR LOW 100, PATIENT WITH VEST LIFE IN PLACE AT THIS TIME PLACE AROUND 1730 EXTENSIVE EDUCATION REGARDING LIFE VEST DONE PER THE TECH, PATIENT VERBALIZE UNDERSTANDING, STABLE DURING THE DAY, WILL ENDORSE CONTINUITY OF CARE TO ONCOMING NURSE.
--- NOTE | 2021-08-06 19:44 | NUR ---
RN OPENING NOTES: RECEIVED PT IN BED AWAKE, A/OX4, AND VERBALLY RESPONSIVE. ON 3L/MIN VIA N/C, AND PT TOLERATED WELL. IV ACCESS ON RT AND LT HAND #20G INTACT AND PATENT. NO S/S OF INFILTRATIONS. NO C/O PAIN OR DISCOMFORT. NO ACUTE DISTRESS. LINDQUIST CATHETER INTACT AND PATENT WITH YELLOWISH/CLEAR URINE. PT IS WEARING VEST PER ORDER. CHANGE BATTERY QAM. ALL SAFETY MEASURES IN PLACE. BED IN THE LOWEST POSITION AND LOCKED. SIDE RAILS UP X3, PLACE CALL LIGHT WITH IN REACH. WILL CONTINUE TO MONITOR
[2021-08-06 20:00] VITALS: BP 127/74
[2021-08-06] MEDS: ACETAMINOPHEN 325 MG TABLET PO PRN (21:39)
--- NOTE | 2021-08-06 21:42 | NUR ---
RN NOTES: PT C/O HEADACHE, 3/10 PAIN SCALE. TYLENOL 325 MG 2 TABS GIVEN PER PRN ORDERED. WILL CONTINUE TO MONITOR
[2021-08-07] VITALS: BP 103/66
[2021-08-07 04:00] VITALS: BP 115/70
--- NOTE | 2021-08-07 06:35 | NUR ---
RN CLOSING NOTES: PT IN BED AWAKE, A/OX4, AND VERBALLY RESPONSIVE. ON 3L/MIN VIA N/C, AND PT TOLERATED WELL. O2 SAT 100%. IV ACCESS ON RT AND LT HAND #20G INTACT AND PATENT. NO S/S OF INFILTRATIONS. NO C/O PAIN OR DISCOMFORT. NO ACUTE DISTRESS. LINDQUIST CATHETER INTACT AND PATENT WITH YELLOWISH/CLEAR URINE. DUE MEDS GIVEN ORDERED. PT HAS LIFE VEST ON. ALL SAFETY MEASURES IN PLACE. BED IN THE LOWEST POSITION AND LOCKED. SIDE RAILS UP X3, PLACE CALL LIGHT WITH IN REACH. WILL ENDORSE TO MORNING SHIFT NURSE.
[2021-08-07 07:38] LABS: BASOPHILS # (AUTO) 0.1 K/uL (0.0-0.2); BASOPHILS % (AUTO) 0.9 % (0.0-2.0); EOSINOPHILS % (AUTO) 8.6 % (0.0-6.0); HEMATOCRIT 29 % (33-45); HEMOGLOBIN 9.1 g/dL (11.5-14.8); LYMPHOCYTES # (AUTO) 0.8 K/uL (0.8-4.8); LYMPHOCYTES % (AUTO) 13.6 % (20.0-44.0); MEAN CORPUSCULAR HGB CONC 32 g/dl (31.0-36.0); MEAN CORPUSCULAR VOLUME 84 fL (82-100); MONOCYTES # (AUTO) 0.3 K/uL (0.1-1.30); MONOCYTES % (AUTO) 5.5 % (2.0-12.0); NEUTROPHILS # (AUTO) 4.1 K/uL (1.8-8.9); NEUTROPHILS % (AUTO) 71.4 % (43.0-81.0); PLATELET COUNT (AUTO) 480 K/uL (150-450); RED BLOOD CELL COUNT(AUTO) 3.42 MIL/uL (4.0-5.2); WHITE BLOOD COUNT (AUTO) 5.8 K/uL (4.3-11.0)
[2021-08-07 07:43] LABS: CALCIUM, SERUM 8.5 mg/dL (8.5-10.1); CREATININE 0.5 mg/dL (0.6-1.3); MAGNESIUM 1.9 mg/dL (1.8-2.4); PHOSPHORUS 3.8 mg/dL (2.5-4.9); POTASSIUM 3.9 mmol/L (3.5-5.1)
[2021-08-07 08:00] VITALS: BP 127/81
[2021-08-07] MEDS: APIXABAN 5 MG TABLET PO SCH (08:52)
[2021-08-07] MEDS: ASPIRIN 81 MG TAB.CHEW PO SCH (08:53)
[2021-08-07] MEDS: METOPROLOL TARTRATE 25 MG TABLET PO SCH (08:53)
[2021-08-07] MEDS: LEVOTHYROXINE SODIUM 75 MCG TABLET PO SCH (08:53)
[2021-08-07] MEDS: PANTOPRAZOLE 40 MG TABLET.DR PO SCH (08:53)
[2021-08-07] MEDS: SLOW FE 1 TAB PO SCH (08:54)
[2021-08-07] MEDS: EMPAGLIFLOZIN 25 MG TABLET PO SCH (08:54)
[2021-08-07] MEDS: GABAPENTIN 100 MG CAPSULE PO SCH ×3 (08:54→16:21)
[2021-08-07] MEDS: CEFTRIAXONE 1 G in IV D5W 50 ML IV SCH (08:57)
[2021-08-07] MEDS: GLUCERNA SHAKE 237 ML CAN PO SCH (09:00)
[2021-08-07] MEDS ORDERED: METO25TA20 PO (11:48)
[2021-08-07 12:00] VITALS: BP 128/78
[2021-08-07] MEDS: MORPHINE SULFATE INJ 2 MG/ML DISP.SYRIN IV PRN ×2 (12:17→12:26)
[2021-08-07] MEDS: ACETAMINOPHEN 325 MG TABLET PO PRN (12:17)
--- NOTE | 2021-08-07 12:28 | NUR ---
rn notes: pt complained of severe body pain 11/06, obtained morphine sulfate4 mg IV and went to give it pt refused to take it saying it caused nausea, she requested tylenol, tylenol was given, wasted 4 mg morphine IV Charge nurse Cait witnessed it
[2021-08-07] MEDS ORDERED: LOSARTAN POTASSIUM 25 MG TABLET PO SCH (17:00)
--- NOTE | 2021-08-07 17:15 | NUR ---
internet assessor notes: pt in bed awake, alert and oriented x 4, respiration is even and unlabores, O2 sat 97% on room air, Ambulance came to [facility] picker patient to go home, skin intact, continue live vest, patient verbalized she know how to take care of the life vest, reviewed medication and discharge instruction verbalized understanding, took all her belonging, left home in stable condition
[2021-08-07 17:28] VITALS: BP 128/78
[2021-08-07] MEDS: ATORVASTATIN 40 MG TABLET PO SCH (17:28)
== END 2021-08-07 17:49 | disposition home or self-care (01) | DRG 194 ==
LOC: TELE 02:07 → TELE1 08-05 21:01
PROVIDERS: ADMIT Nurse Practitioner Acute Care; ATTEND Internal Medicine
DX: I11.0 Hypertensive heart disease with heart failure (principal); E43 Unspecified severe protein-calorie malnutrition; E88.09 Other disorders of plasma-protein metabolism, not elsewhere classified; Z79.01 Long term (current) use of anticoagulants; E11.9 Type 2 diabetes mellitus without complications; E03.9 Hypothyroidism, unspecified; D50.9 Iron deficiency anemia, unspecified; I50.23 Acute on chronic systolic (congestive) heart failure; E83.42 Hypomagnesemia; Z68.1 Body mass index [BMI] 19.9 or less, adult; Z20.822 Contact with and (suspected) exposure to COVID-19; E87.6 Hypokalemia; K21.9 Gastro-esophageal reflux disease without esophagitis; M06.9 Rheumatoid arthritis, unspecified; Z86.718 Personal history of other venous thrombosis and embolism; F41.9 Anxiety disorder, unspecified; Z74.09 Other reduced mobility
CPT/HCPCS: 36415; 71045-TC; 80048-TC; 80053-TC; 80061-TC; 82272-TC; 82728-TC; 83540-TC; 83735-TC; 83880; 84100-TC; 84439-TC; 84443-TC; 85025-TC; 87081-TC; 93307-TC; 97112-TC; 97530-TC; G0378; J0282; J0696; J1160; J1940; J2270; J3475; J7030; J7060